=== PATIENT | male | born 1965 | race African-American/Black ===

== ENCOUNTER 2017-02-07 09:04 | Emergency (ER) | payer SELFPAY | END 2017-02-07 11:16 | disposition home or self-care (01) | DX: M72.2 Plantar fascial fibromatosis (principal); F17.200 Nicotine dependence, unspecified, uncomplicated ==

== ENCOUNTER 2017-03-29 12:39 | Outpatient (CLI) | payer OTHER | END 2017-03-29 12:40 | disposition critical access hospital (66) | LOC: EMS 12:39 | PROVIDERS: ATTEND Surgery | DX: T78.40XA Allergy, unspecified, initial encounter (principal) | CPT/HCPCS: A0425; A0427 ==

== ENCOUNTER 2017-03-29 13:01 | Observation (INO) | payer OTHER ==
[2017-03-29] MEDS ORDERED: methylPREDNISolone SUCCINATE 125 MG/2 ML VIAL IVP STA ×2 (13:08→15:58)
[2017-03-29] MEDS ORDERED: LORATADINE 10 MG TABLET PO STA (13:08)
[2017-03-29] MEDS ORDERED: SODIUM CHLORIDE 0.9% 1,000 ML IV ONE (13:08)
--- NOTE | 2017-03-29 13:11 | ED Physician Documentation ---
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 Today he was in his usual state of health and got some metal dust on his face. He went to the bathroom to wash it off and was given an industrial towel to wipe his face with. Shortly after that developed edema of the face and lips and a rash to bilateral upper extremities. EMS was summoned and he received 0.3 mg of epinephrine intramuscular and 50 mg of Benadryl IV en route with improvement but not resolution of his symptoms. He does not take any other medications regularly but did take ibuprofen this morning but has had that before. He denies chest pain, shortness of breath, wheezing.) Review of Systems Ten Systems: 10 systems reviewed and negative Constitutional: reports: Reviewed and negative Cardiac: reports: Reviewed and negative Respiratory: reports: Reviewed and negative PD PAST MEDICAL HISTORY - Past Medical History Past Medical History: No Cardiovascular: None Respiratory: None Neuro: None Endocrine/Autoimmune: None - Past Surgical History Past Surgical History: No - Present Medications Home Medications: Ambulatory Orders Medication Instructions Recorded Confirmed No Known Home Medications [No 02/07/17 02/07/17 Known Home Medications] - Allergies Allergies/Adverse Reactions: Allergies Allergy/AdvReac Type Severity Reaction Status Date / Time No Known Drug Allergies Allergy Verified 02/07/17 09:16 - Social History Does the pt smoke?: Yes Smoking Status: Current every day smoker Does the pt drink ETOH?: Yes Does the pt have substance abuse?: No - Family History Family history: reports: Non contributory - Immunizations Immunizations: TDAP >10years/unknown - POLST Patient has POLST: No PD ED PE NORMAL - Vitals Vital signs reviewed: Yes - General General: Alert and oriented X 3, No acute distress - HEENT HEENT: Other (He has bilateral and symmetric angioedema of the lips and tongue without occlusion of his oropharynx. The visualized portions of the oropharynx appear normal. His voice is normal.) - Neck Neck: Supple, no meningeal sign, No bony TTP - Cardiac Cardiac: RRR, No murmur - Respiratory Respiratory: No respiratory distress, Clear bilaterally - Abdomen Abdomen: Non tender - Derm Derm: Other (Mild erythema to the upper extremities) - Extremities Extremities: No edema, No calf tenderness / cord - Neuro Neuro: Alert and oriented X 3, Normal speech - Psych Psych: Normal mood, Normal affect Results - Vitals Vitals: Vital Signs - 24 hr 03/29/17 03/29/17 03/29/17 13:00 13:17 13:57 Temperature 36.4 C L Heart Rate 115 H 70 60 Respiratory 18 17 16 Rate Blood Pressure 135/100 H 128/79 116/66 O2 Saturation 100 100 97 03/29/17 03/29/17 14:35 15:12 Temperature Heart Rate 66 63 Respiratory 17 16 Rate Blood Pressure 120/73 121/67 O2 Saturation 98 100 Oxygen O2 Source Room air PD MEDICAL DECISION MAKING - ED course ED course: He presents with anaphylaxis, but causes idiopathic. Somewhat more likely to be the industrial towel he wiped his face with then the metal dust which he's worked with for years, that said it is not completely clear. He RE received epinephrine with improvement prior to arrival and will require a prolonged observation period in the emergency department. He was also administered IV steroid's and oral Claritin here. He was observed for several hours, he didn't have any further improvement in fact looks like he had slightly increased swelling especially of the upper lip, at 310 p.m. decision to admit was made he was administered a second dose of epinephrine IM. Spoke with Dr. Malhotra at that time for admission. Departure - Departure Disposition: ED Place in Observation Clinical Impression: Anaphylactic reaction Qualifiers: Encounter type: initial encounter Qualified Code(s): T78.2XXA - Anaphylactic shock, unspecified, initial encounter Condition: Stable
[2017-03-29] MEDS ORDERED: LORATADINE 10 MG TABLET ONE (13:13)
[2017-03-29] MEDS ORDERED: methylPREDNISolone SUCCINATE 125 MG/2 ML VIAL IVP ONE ×2 (13:13→16:51)
[2017-03-29] MEDS ORDERED: EPINEPHrine 1 MG/ML AMP IM STA (15:08)
[2017-03-29] MEDS ORDERED: EPINEPHrine 1 MG/ML AMP ONE (15:08)
[2017-03-29] MEDS ORDERED: FAMOTIDINE 20 MG/50 ML 50 ML IV ONE (15:15)
[2017-03-29] MEDS ORDERED: FAMOTIDINE 20 MG/50 ML IV ONE (15:16)
[2017-03-29] MEDS ORDERED: SODIUM CHLORIDE FLUSH 0.9% 10 ML SYRINGE IVP PRN (15:53)
[2017-03-29] MEDS ORDERED: IBUPROFEN 400 MG TABLET PO PRN (15:53)
[2017-03-29] MEDS ORDERED: ONDANSETRON ODT 4 MG TABLET TL PRN (15:53)
[2017-03-29] MEDS ORDERED: diphenhydrAMINE INJ 50 MG/ML VIAL IVP PRN (15:56)
[2017-03-29] MEDS ORDERED: FAMOTIDINE 20 MG/50 ML 50 ML IV PRN (15:59)
--- NOTE | 2017-03-29 16:56 | HISTORY & PHYSICAL EXAMINATION ---
Chief Complaint - Chief Complaint Chief Complaint: facial swelling History of Present Illness - Admitted From Admitted From:: Emergency Department - History Obtained From Records Reviewed: Yes History obtained from: Patient Exam Limitations: N/A - History of Present Illness HPI Comment/Other: PT with no significant past medical HX. He drinks 2 X 24 ounce beers per day. He smokes marijuana daily and 5-10 cigarettes per day. He has no recent illness or injury to report. He was at his usual state of health until today. He was at work when onset of Sx began. 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 He went to the sink to clean up and washed his face. After washing up someone handed him an industrial paper towel and he dried off. Pt did recall the other gentleman was wearing nitril gloves and wonders if he had chemicals on them. He went back to his work station. He noted tingling sensation of his lips. His coworkers noted his lips were swollen. He then noted his tongue was swelling and he had fullness in his throat. He was unable to talk because of the tongue swelling. He was seen by the medical person at the job site and given an injection which he believes was epinephrine. The swelling improved and he was able to breath and talk. His tongue remains swollen and his lips are swollen. He also noted hives on his arms after removing his shirt in the ED. In the ED he was given IV famotidine, Claritin and steroids. He continues to improve but has not returned to baseline. Breathing is not compromised and he is able to swallow without difficulty. Review of Systems - Constitutional Constitutional: denies: Fatigue, Fever, Chills, Weakness - Eyes Eyes: denies: Pain, Blurred vision, Spots in vision, Field loss, Vision loss - Ears, Nose & Throat Ears, Nose & Throat: reports: Other (Fullness in neck and swelling of tongue). denies: Ear pain, Hearing loss, Hearing aids - Cardiovascular Cariovascular: denies: Irregular heart rate, Palpitations, Chest pain - Respiratory Respiratory: denies: Cough, Wheezing, Hemoptysis, Apnea, Stridor - Gastrointestinal Gastrointestinal: denies: Abdominal pain, Abdominal distention, Diarrhea, Nausea , Vomiting - Genitourinary Genitourinary: denies: Dysuria - Musculoskeletal Musculoskeletal: denies: Muscle pain, Muscle aches - Integumentary Integumentary: reports: Rash (Hvies are arms. resolved with treatment in ED) - Neurological Neurological: reports: Numbness (facial numbess). denies: Headache, Dizziness - Psychiatric Psychiatric: denies: Depression, Anxiety - Endocrine Endocrine: denies: Polyuria, Polydypsia - Hematologic/Lymphatic Hematologic/Lymphatic: denies: Anemia, Bruising History - Past Medical History Cardiovascular: reports: None Respiratory: reports: None Neuro: reports: None Endocrine/Autoimmune: reports: None GI: reports: None : reports: None HEENT: reports: None Psych: reports: None Musculoskeletal: reports: None Derm: reports: None - Past Surgical History Other past surgical history: negative past surgical HX - Family & Social History Family History Comment/Other: Family HX reviewed and non contributory Living arrangement: At home - Substance History Use: Uses substance without health or social issues: Tobacco, Alcohol, Cannabis Abuse: Recurrent use of substance despite neg consequences: NONE Dependence: Experiences withdrawal or developed tolerances: NONE Tobacco Details: Cigarettes - POLST Patient has POLST: No POLST Status: Full Code Meds/Allgy - Home Medications Home Medications: Ambulatory Orders Medication Instructions Recorded Confirmed No Known Home Medications [No 02/07/17 02/07/17 Known Home Medications] - Allergies Allergies/Adverse Reactions: Allergies Allergy/AdvReac Type Severity Reaction Status Date / Time No Known Drug Allergies Allergy Verified 02/07/17 09:16 Exam - Vital Signs Vital Signs: Vital Signs x48h Temp Pulse Resp BP Pulse Ox 03/29/17 15:49 75 18 118/61 99 03/29/17 15:12 63 16 121/67 100 03/29/17 14:35 66 17 120/73 98 03/29/17 13:57 60 16 116/66 97 03/29/17 13:17 70 17 128/79 100 03/29/17 13:00 36.4 C L 115 H 18 135/100 H 100 - Physical Exam General Appearance: positive: No acute distress, Alert Eyes Bilateral: positive: PERRL, EOMI, No lid inflammation, Conjunctivae nml, No scleral icterus, Other (Bilateral arcus sinilis) ENT: positive: Other (inflammation of lips and tongue) Respiratory: positive: Chest non-tender, No respiratory distress, Breath sounds nml. negative: Wheezes, Rales, Rhonchi Cardiovascular: positive: Regular rate & rhythm, No murmur, No gallop. negative : Systolic murmur, Diastolic murmur, Friction rub Peripheral Pulses: positive: 2+ Abdomen: positive: Non-tender, No organomegaly, Nml bowel sounds, No distention Back: positive: Nml inspection Skin: positive: No rash, Warm, Dry Extremities: positive: Non-tender, Full ROM, Nml appearance Neurologic/Psychiatric: positive: Oriented x3, CN's nml (2-12) Conclusion/Plan - Problem List (1) Anaphylactic reaction Conclusion/Plan: PT with acute onset of facial, tongue and throat swelling. He also had presence of hives on arms. Symptoms improved with epinephrine, famotidine, claritin and steroids. Plan Admit for observation. PRN H1, H2 and steroid orders placed. anticipate discharge in AM if improved and no further concerns. Qualifiers: Encounter type: initial encounter Qualified Code(s): T78.2XXA - Anaphylactic shock, unspecified, initial encounter Issues/Core Measures - Anticipated LOS Anticipated Stay Length: Less than 2 midnights - DVT/VTE - Prophylaxis VTE/DVT Device ordered at admit?: Yes - Stroke - Rehab Assessment Rehab services assessment to be ordered?: No Not Ordered - Medical Reason: Not indicated - AMI - Statin at Admit Aspirin Prescribed on Admit: No Not Ordered - Medical Reason: Not indicated
[2017-03-29] MEDS ORDERED: methylPREDNISolone SUCCINATE 125 MG/2 ML VIAL IVP PRN (17:12)
[2017-03-29] MEDS: SODIUM CHLORIDE FLUSH 0.9% 10 ML SYRINGE IVP SCH (21:37)
[2017-03-30] MEDS: SODIUM CHLORIDE FLUSH 0.9% 10 ML SYRINGE IVP SCH (07:00)
[2017-03-30 07:59] VITALS: BP 116/64
[2017-03-30] MEDS ORDERED: POLYETHYLENE GLYCOL 3350 17 GM PACKET PO SCH (09:00)
--- NOTE | 2017-03-30 09:12 | Discharge Plan ---
Discharge Plan Disposition: 01 Home, Self Care Condition: Stable Diet: Regular Activity Restrictions: No Restrictions Shower Restrictions: No Driving Restrictions: No Weight Bearing: Full Weight No Smoking: If you smoke, Please STOP! Call for help.
--- NOTE | 2017-03-30 20:28 | DISCHARGE SUMMARY ---
DATE OF ADMISSION: 03/29/2017 DATE OF DISCHARGE: 03/30/2017 PRIMARY CARE PROVIDER: None. ADMITTING DIAGNOSIS: Anaphylactic reaction. DISCHARGE DIAGNOSIS Anaphylactic reaction. a. Suspect secondary to contaminant on towel. b. Resolved. BRIEF HISTORY OF PRESENT ILLNESS: For specifics, please see admission. 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 Within 10 minutes of using the towel, his lips began tingling. This rapidly progres sed to swelling of the lips, tongue and throat with inability to speak. He was treated with epinephri ne on site and transferred to the hospital for further evaluation. COURSE IN CENTER: The patient was initially treated in the emergency department. He given famotidine, Claritin, epinephrine and methylprednisolone IV. His symptoms had improved, but not resolved. He was then admitted for further observation. The patient was admitted to the medical floor for observation. His symptoms slowly resolved overnight . He had no further facial edema. His speech returned to normal. He did not suffer difficulties with respirations or swallowing. The patient had no changes in his visual acuity during the event. DISCHARGE PHYSICAL EXAMINATION GENERAL: Well developed, well nourished, no acute distress. HEENT: Normocephalic, atraumatic. Edema from previous evening had resolved. CHEST: Clear to auscultation. HEART: Regular rate and rhythm. ABDOMEN: Benign. EXTREMITIES: Without edema. NEUROLOGICAL: Cranial nerves 2 through 12 grossly intact. PSYCHIATRIC: Appropriate. DISCHARGE MEDICATIONS: None. FOLLOWUP: Encouraged patient to establish with a primary care provider. DISPOSITION: Discharge home. Less than 30 minutes was spent in discharge of this patient. Thank you for the opportunity to participate in the care of this patient in all his medical needs. JOB #: [id number] EXT JOB #:[id number]
== END 2017-03-30 11:31 | disposition home or self-care (01) ==
LOC: EDUNIT# → ED 13:01 → MS 15:53
PROVIDERS: ADMIT Physician Assistant; ATTEND Physician Assistant
DX: T78.2XXA Anaphylactic shock, unspecified, initial encounter (principal); Y99.0 Civilian activity done for income or pay; F17.200 Nicotine dependence, unspecified, uncomplicated
CPT/HCPCS: 96361; 96372; 96374; 96375; 96376; 99284; A9270; G0378

== ENCOUNTER 2017-05-17 13:48 | Emergency (ER) | payer SELFPAY ==
[2017-05-17 14:02] VITALS: BP 112/71
--- NOTE | 2017-05-17 15:20 | ED Physician Documentation ---
PD HPI HEENT - Stated complaint Stated Complaint: FACE SWELLING/HIVES - Chief complaint Chief Complaint: Allergic Rx - History obtained from History obtained from: Patient - History of Present Illness Timing - onset: How many hours ago (1 hour ago, jsoon after lunch but was back to work and did not note any unusual odor, chemical, dust, etc.), Today Timing - details: Abrupt onset Location: Mouth (felt swelling of face and lips. Not introral and no trouble breathing.) Associated symptoms: No: Rhinorrhea Similar symptoms before: No diagnosis (allergic reaction recently, also at work , without obvious cause. Cleared with benadryl and steroids. Does have some food allergies but had not had any known allergens.) Review of Systems Constitutional: denies: Fever, Chills Nose: denies: Rhinorrhea / runny nose, Congestion, Sinus pressure / pain Throat: denies: Sore throat Respiratory: denies: Dyspnea, Cough GI: denies: Vomiting, Diarrhea Neurologic: denies: Generalized weakness, Near syncope PD PAST MEDICAL HISTORY - Past Medical History Cardiovascular: None Respiratory: None Neuro: None Endocrine/Autoimmune: None GI: None : None HEENT: None Psych: None Musculoskeletal: None Derm: None - Past Surgical History Past Surgical History: No - Present Medications Home Medications: Ambulatory Orders Medication Instructions Recorded Confirmed Ibuprofen [Motrin] 800 mg PO TID PRN 03/29/17 03/29/17 Dexamethasone [Decadron] 4 mg PO DAILY #5 tablet 05/17/17 - Allergies Allergies/Adverse Reactions: Allergies Allergy/AdvReac Type Severity Reaction Status Date / Time No Known Drug Allergies Allergy Verified 02/07/17 09:16 - Social History Does the pt smoke?: Yes Smoking Status: Current every day smoker Does the pt drink ETOH?: Yes Does the pt have substance abuse?: No - Immunizations Immunizations: TDAP >10years/unknown - POLST Patient has POLST: No POLST Status: Full Code PD ED PE NORMAL - Vitals Vital signs reviewed: Yes - General General: Alert and oriented X 3, No acute distress (facial/lip swelling but not posterior oral/uvula and no trouble breathing. ), Well developed/nourished - HEENT HEENT: Atraumatic, Ears normal, Moist mucous membranes, Pharynx benign ( posterior okay and uvula normal, but with swelling of lips and cheeks, with some redness. No noted hives per se, but he is itchy diffusely.) - Neck Neck: Supple, no meningeal sign, No adenopathy - Cardiac Cardiac: RRR - Respiratory Respiratory: No respiratory distress, Clear bilaterally - Derm Derm: Normal color, Warm and dry - Extremities Extremities: No deformity, No tenderness to palpate - Neuro Neuro: Alert and oriented X 3, No motor deficit, Normal speech Results - Vitals Vitals: Oxygen O2 Source Room air PD MEDICAL DECISION MAKING - ED course Complexity details: reviewed old records, considered differential (allergic reaction, unknown trigger, with similar episode recently - both occurred at work. ), d/w patient Departure - Departure Disposition: Home, Self Care Clinical Impression: Allergic Qualifiers: Encounter type: initial encounter Qualified Code(s): T78.40XA - Allergy, unspecified, initial encounter Condition: Stable Record reviewed to determine appropriate education?: Yes Instructions: ED Allergic Reaction General Other Prescriptions: Dexamethasone [Decadron] 4 mg PO DAILY #5 tablet Comments: Decadron daily for 5 more days. Benadryl as needed for itching/swelling. Return if recurrent or persistent problems. Forms: Activity restrictions Discharge Date/Time: 05/17/17 16:18
[2017-05-17] MEDS ORDERED: DEXAMETHASONE 10 MG/ML VIAL PO STA (16:04)
[2017-05-17] MEDS ORDERED: DEXAMETHASONE 10 MG/ML VIAL ONE (16:10)
[2017-05-17] MEDS ORDERED: CHERRY SYRUP 10 ML UDC PO ONE (16:10)
== END 2017-05-17 16:18 | disposition home or self-care (01) ==
LOC: ED 13:48
DX: T78.40XA Allergy, unspecified, initial encounter (principal); L50.9 Urticaria, unspecified; F17.200 Nicotine dependence, unspecified, uncomplicated
CPT/HCPCS: 99283; A9270